=== PATIENT | male | born 1995 | race Caucasian/White ===

== ENCOUNTER 2018-11-12 22:21 | Emergency (ER) | payer OTHER ==
[2018-11-12] MEDS ORDERED: Ketorolac INJ* 30 MG/ML 1 ML VIAL IV PUSH ONE (22:33)
[2018-11-12] MEDS ORDERED: Morphine 4 MG/ML VIAL (1 ml) 4 MG/ML VIAL IV ONE (22:33)
--- NOTE | 2018-11-12 23:30 | ED ---
Upper Extremity Pain - HPI Summary HPI Summary: 23-year-old male presents with possible left shoulder dislocation. States he was reaching overhead felt his shoulder pop. He has had a dislocation last year. He is right-handed. Denies any numbness or tingling. has limited Range of motion. is a student at . was playing basketball and did not get hit. - History of Current Complaint Chief Complaint: EDShoulderClavicleInj Stated Complaint: POSS DISLOCATED SHOULDER PER PT Time Seen by Provider: 11/12/18 22:29 - Allergies/Home Medications Allergies/Adverse Reactions: Allergies Allergy/AdvReac Type Severity Reaction Status Date / Time Penicillins Allergy Unknown Verified 11/12/18 22:23 Reaction Details PMH/Surg Hx/FS Hx/Imm Hx Endocrine/Hematology History: Denies: Hx Anticoagulant Therapy Cardiovascular History: Denies: Hx Pacemaker/ICD Sensory History: Denies: Hx Hearing Aid Psychiatric History: Denies: Hx Panic Disorder - Surgical History Surgery Procedure, Year, and Place: ear tubes as a child Infectious Disease History: No Infectious Disease History: Denies: Traveled Outside the in Last 30 Days - Social History Alcohol Use: Occasionally Substance Use Type: Reports: None Smoking Status (MU): Never Smoked Tobacco Review of Systems Negative: Fever Negative: Chest Pain Negative: Shortness Of Breath Positive: Myalgia - left shoulder pain All Other Systems Reviewed And Are Negative: Yes Physical Exam Triage Information Reviewed: Yes Vital Signs On Initial Exam: Initial Vitals Temp Pulse Resp BP Pulse Ox 97.5 F 99 22 178/120 98 11/12/18 22:23 11/12/18 22:23 11/12/18 22:23 11/12/18 22:23 11/12/18 22:23 Vital Signs Reviewed: Yes Appearance: Positive: Well-Appearing Skin: Positive: Warm, Dry Head/Face: Positive: Normal Head/Face Inspection Eyes: Positive: Normal, Conjunctiva Clear ENT: Positive: Pharynx normal Respiratory/Lung Sounds: Positive: Clear to Auscultation, Breath Sounds Present Cardiovascular: Positive: Normal, RRR Musculoskeletal: Positive: Other - step off noted to left shoulder, limited ROM , good pulses Neurological: Positive: Normal Psychiatric: Positive: Normal Procedures - Joint Reduction shoulder Joint Reduction Site: shoulder (L) Conscious Sedation: No Reduction Attempts: 2 - scapula manipulation and hung arm Pre-Procedure NV Exam: Yes Post Joint Reduction Film: joint reduced Diagnostics - Vital Signs Vital Signs Temp Pulse Resp BP Pulse Ox 11/12/18 22:36 20 11/12/18 22:23 97.5 F 99 22 178/120 98 - Laboratory Lab Statement: Any lab studies that have been ordered have been reviewed, and results considered in the medical decision making process. - Radiology shoulder Radiology Interpretation Completed By: ED Physician Summary of Radiographic Findings: reduced Course/Dx - Course Course Of Treatment: 23-year-old male presents with possible left shoulder dislocation. States he was reaching overhead felt his shoulder pop. He has had a dislocation last year. He is right-handed. Denies any numbness or tingling. has limited Range of motion. On exam deformity noted to her left shoulder. neurovascular intact. limitied range of motion. gave dose of morphine and performed scapula manipulation and hung arm and patient felt shoulder feels better. Performed x-ray and shoulder is back in place. Patient is now able to place arm across chest. Gave sling. Follow-up with ortho. Patient understands and agrees plan. - Diagnoses Differential Diagnosis/HQI/PQRI: Positive: Fracture (Closed), Strain, Other - dislocation Provider Diagnoses: Recurrent dislocation, left shoulder Discharge - Sign-Out/Discharge Documenting (check all that apply): Patient Departure Patient Received Moderate/Deep Sedation with Procedure: No - Discharge Plan Condition: Good Disposition: HOME Patient Education Materials: Shoulder Dislocation (ED) Referrals: Florin Samano MD [Primary Care Provider] - Scarlett Isabel MD [Medical Doctor] - Additional Instructions: Keep in sling Take Tylenol and ibuprofen every 6 hours as needed for pain Ice/heat Follow up with ortho Return to ED if develop any new or worsening symptoms - Billing Disposition and Condition Condition: GOOD Disposition: Home
[2018-11-12 23:51] VITALS: BP 170/103
== END 2018-11-12 23:45 | disposition home or self-care (01) ==
LOC: ED 22:21
DX: M24.412 Recurrent dislocation, left shoulder (principal); Z88.0 Allergy status to penicillin
CPT/HCPCS: 23650; 96374; 96375; 99283; J1885; J2270